=== PATIENT | female | born 1995 | race Caucasian/White ===

== ENCOUNTER → 2020-10-09 13:33 | Outpatient (BNVA) | payer OTHER, SELFPAY | PROVIDERS: Visit Provider Registered Nurse | DX: R10.9 Unspecified abdominal pain (principal) | CPT/HCPCS: 81000; 81025 ==

== ENCOUNTER → 2020-10-20 15:52 | Outpatient (BNVA) | payer OTHER, SELFPAY | PROVIDERS: Visit Provider Registered Nurse | DX: Z01.818 Encounter for other preprocedural examination (principal) | CPT/HCPCS: 80053; 84443; 85025 ==

== ENCOUNTER 2020-10-24 06:52 | Outpatient (CLI) | payer OTHER, SELFPAY ==
--- NOTE | 2020-10-24 07:15 | US_ITS ---
WS: [id number] ULTRASOUND ABDOMEN LIMITED CLINICAL INFORMATION: R10.9 - Unspecified abdominal pain COMPARISON: None. FINDINGS: Technically difficult examination due to bowel gas and body habitus. Liver Size: Normal. Craniocaudal length: 17.1 cm. Echogenicity: Heterogeneous. Dense. Surface nodularity: None. Mass (size and location): None. Hepatopedal flow in the portal veins. Bile ducts Intrahepatic ducts: Normal. Common bile duct diameter: 0.3 cm. Gallbladder Normal. Gallstones: None. Gallbladder sludge: None. Gallbladder wall thickening: None. Pericholecystic fluid: None. Sonographic Crowley sign: Absent. Pancreas Not well visualized Right kidney: Normal. Hydronephrosis: None. Size: 12.5 cm x 5.2 cm x 5.5 cm. Abdominal aorta and IVC Visualized portions are normal. Ascites: None. US/US gall bladder [id number] IMPRESSION: Technically difficult examination due to bowel gas and body habitus 1. Heterogeneous hepatic echotexture likely due to fatty infiltration. 2. Normal gallbladder. 3. No hydronephrosis in the right kidney. 4. No ascites.
== END 2020-10-24 06:53 | disposition home or self-care (01) ==
LOC: US 06:53
PROVIDERS: PCP Registered Nurse; Visit Provider Registered Nurse
DX: R10.9 Unspecified abdominal pain (principal)
CPT/HCPCS: 76705

== ENCOUNTER → 2025-08-16 07:47 | Outpatient (BNVA) | payer MEDICAID, SELFPAY | PROVIDERS: PCP Registered Nurse; Visit Provider Registered Nurse | DX: R39.11 Hesitancy of micturition (principal) | CPT/HCPCS: 81000 ==